=== PATIENT | female | born 1985 | race Two or more races ===

== ENCOUNTER 2017-03-04 16:03 | Emergency (ER) | payer OTHER ==
[2017-03-04 16:30] VITALS: TEMP 98.3; BMI 23.6
--- NOTE | 2017-03-04 18:55 | PDOC ---
History of Present Illness - General Chief Complaint: Vaginal Bleeding Stated Complaint: VAGINAL BLEEDING (4 WEEKS) History Source: Patient, Spouse Exam Limitations: No Limitations - History of Present Illness Initial Comments: 03/04/17 18:55 [id number] with pmh of preeclampsia presents 4 week (last period January 16) and spotting in the urine around 8am and 10am and lower abdominal pain for the past few days. Pain is worse when standing up and walking. Morning nausea and vomiting since started. Slight dysuria. No other complaints. 03/04/17 19:07 Past History - Past Medical History Allergies/Adverse Reactions: Allergies Allergy/AdvReac Type Severity Reaction Status Date / Time No Known Allergies Allergy Verified 03/04/17 16:25 Home Medications: Ambulatory Orders NK [No Known Home Medication] 03/04/17 Other medical history: denies - Immunization History Immunization Up to Date: Yes - Psycho/Social/Smoking Cessation Hx Suicidal Ideation: No Smoking History: Never smoked Information on smoking cessation initiated: No Hx Alcohol Use: No Drug/Substance Use Hx: No Review of Systems - Review of Systems Constitutional: No: Symptoms Reported HEENTM: No: Symptoms Reported Respiratory: No: Symptoms reported Cardiac (ROS): No: Symptoms Reported ABD/GI: No: Symptoms Reported : Yes: Dysuria, Discharge, Hematuria Musculoskeletal: No: Symptoms Reported Integumentary: No: Symptoms Reported Neurological: No: Symptoms reported *Physical Exam - Vital Signs Last Vital Signs Temp Pulse Resp BP Pulse Ox 98.3 F 82 18 115/58 100 03/04/17 16:05 03/04/17 16:05 03/04/17 16:05 03/04/17 16:05 03/04/17 16:05 - Physical Exam General Appearance: Yes: Nourished, Appropriately Dressed. No: Apparent Distress HEENT: positive: EOMI, YOUSIF Neck: negative: Tender Respiratory/Chest: positive: Lungs Clear, Normal Breath Sounds. negative: Chest Tender Cardiovascular: positive: Regular Rhythm, Regular Rate, S1, S2 Vascular Pulses: Dorsalis-Pedis (R): 2+, Doralis-Pedis (L): 2+ Female Pelvic Exam: positive: cervical os closed (difficult to assess - ambiguous), vaginal bleeding (possible products of conception in cul-de-sac) Gastrointestinal/Abdominal: positive: Normal Bowel Sounds, Tender, Flat, Soft Musculoskeletal: negative: CVA Tenderness Medical Decision Making - Medical Decision Making 03/04/17 19:19 31 4weeks with spotting and abdominal pain. Sent labs and lytes, Urine preg positive Transvaginal u/s pending
[2017-03-04 18:57] LABS: URINE APPEARANCE SLCLOUDY; URINE BILIRUBIN NEGATIVE (NEGATIVE); URINE BLOOD 3+ (NEGATIVE); URINE COLOR YELLOW; URINE GLUCOSE (UA) NEGATIVE (NEGATIVE); URINE KETONE NEGATIVE (NEGATIVE); URINE LEUK ESTERASE NEGATIVE (NEGATIVE); URINE NITRITE NEGATIVE (NEGATIVE); URINE PROTEIN NEGATIVE (NEGATIVE)
[2017-03-04 19:00] LABS: URINE MUCUS FEW; URINE RBC 105 /hpf (0-3); URINE WBC 2 /hpf (3-5)
[2017-03-04 19:28] LABS: BASOPHIL 1.1 % (0-2.0); EOSINOPHIL 2.2 % (0-4.5); MCH 30.6 pg (25.7-33.7); MCHC 32.8 g/dl (32.0-36.0); MEAN CELL VOLUME 93.5 fl (80-96); MEAN PLT VOLUME 7.3 fl (7.5-11.1); NEUTROPHILS 59.8 % (42.8-82.8); PLATELET COUNT 238 K/MM3 (134-434); RDW 13.9 % (11.6-15.6)
[2017-03-04 20:12] LABS: ALBUMIN 3.7 g/dl (3.4-5.0); ANION GAP 7 (8-16); CO2 28 mmol/L (21-32); CREATININE 0.5 mg/dL (0.55-1.02); GLUCOSE,RANDOM 78 mg/dL (74-106); SGOT/AST 15 U/L (15-37); SGPT/ALT 27 U/L (12-78)
[2017-03-04 20:28] LABS: ALK PHOS 44 U/L (45-117); BILIRUBIN,TOTAL 0.2 mg/dL (0.2-1.0); TOT PROT 7.1 g/dl (6.4-8.2)
--- NOTE | 2017-03-04 21:51 | PDOC ---
Attending Attestation - Resident Resident Name: Samson Weiss - ED Attending Attestation I have performed the following: I have examined & evaluated the patient, The case was reviewed & discussed with the resident, I agree w/resident's findings & plan, Exceptions are as noted - HPI HPI: 03/04/17 21:51 47 yo F currently about 4 weeks here with c/o suprapubic crampy abd pain and spotting. less than period. began today. no dizziness no other complaints. h/o preeclempsia. - Physicial Exam PE: 03/04/17 21:51 awake alert lungs clear heart rrr no mrg. abd soft mild suprapubic ttp. no rebound no guarding. ext wwp skin warm and dry. nuero alert oriented x 3. - Medical Decision Making 03/04/17 21:51 plan r/o ectopic vs threatened vs. incomplete or missed AB. plan labs blood type tvus. <Velma Doe - Last Filed: 03/04/17 21:50> - Medical Decision Making 03/04/17 21:52 EXAM#: TYPE/EXAM: RESULT: [id number] US/TRANSVAGINAL US PREG . Vaginal bleeding. Obstetrical ultrasound, transvesical and transvaginal Compared to prior examination dated 01/23/2015. LMP 01/18/2017. The uterus is gravid measuring 9.2 x 4.7 cm. An intrauterine gestational sac, yolk sac and pole identified. Mean sac diameter is 1.66 cm consistent with 6 weeks 3 days of gestation. Yolk sac measures 2 mm. pole measures 6 mm consistent with 6 weeks 3 days of gestation. heart rate is 1 23 bpm. The right ovary measures 3.2 x 2.2 cm and the left ovary measures 2.8 x 1.1 cm. Both ovaries appear unremarkable with normal vascular flow in the right ovary. Vascular flow in the left ovary was not evaluated on this exam. There is no free fluid in the cul-de-sac. Impression Single early live intrauterine with estimated gestational age of 6 weeks 3 days. Both ovaries appear unremarkable. Normal vascular flow in the right ovary. Vascular flow in the left ovary was not evaluated. Reported By: Tori Sykes MD 03/04/172129 <Jennifer Milton - Last Filed: 03/04/17 21:52>
[2017-03-04 23:03] VITALS: BP 119/68; PULSE 81
== END 2017-03-04 23:03 | disposition home or self-care (01) ==
LOC: JER 16:03
DX: O26.891 Other specified pregnancy related conditions, first trimester (principal); N93.9 Abnormal uterine and vaginal bleeding, unspecified; Z3A.01 Less than 8 weeks gestation of pregnancy
CPT/HCPCS: 36415; 76817-TC; 80053; 81003; 81015; 84702; 84703; 85025; 86850; 86900; 86901; 99283-25

== ENCOUNTER 2017-10-19 10:20 | Inpatient (IN) | payer OTHER ==
--- NOTE | 2017-10-19 11:18 | HP ---
Past Medical History - Primary Care Physician PCP:: Eren Peña - Admission Chief Complaint: 38.4 weeks, prom, GDM History of Present Illness: 32 yo f edc by don 10/25/17 with prom since 730 am today, water run down her legs twice , no pain, has pinkish discharge , cx 2 cm 80 vx -2 , nitrazine equivical, History Source: Patient Limitations to Obtaining History: No Limitations - Past Medical History ...: 4 ...Para: 2 ...Term: 2 ...: 1 ... Weeks Gestation by Dates: 38.4 - Past Surgical History Hx Myomectomy: No Hx Transabdominal Cerclage: No - Smoking History Smoking history: Never smoked - Alcohol/Substance Use Hx Alcohol Use: No Home Medications - Allergies Allergies/Adverse Reactions: Allergies Allergy/AdvReac Type Severity Reaction Status Date / Time No Known Allergies Allergy Verified 10/19/17 11:56 - Home Medications Home Medications: Ambulatory Orders 19 Tablet 1 tab PO DAILY 10/14/17 Ferrous Sulfate [Feosol] 325 mg PO TID 10/19/17 Problem List - Problems (1) with 38 completed weeks gestation Code(s): Z3A.38 - 38 WEEKS GESTATION OF (2) Premature rupture of membranes Code(s): O42.90 - SHERWIN ROM, 7TH0 BETW RUPT & ONST LABR, UNSP WEEKS OF GEST Qualifiers: PROM onset of labor timing: onset of labor within 24 hours of rupture PROM gestational age: -third trimester Qualified Code(s): O42.013 - premature rupture of membranes, onset of labor within 24 hours of rupture, third trimester Assessment/Plan admit, GBS negative observation, if no contraction will induce rba discussed
[2017-10-19] MEDS ORDERED: BUTORPHANOL TARTRATE 1 MG/ML VIAL IVPUSH ONE (11:23)
[2017-10-19] MEDS ORDERED: PROMETHAZINE HCL 25 MG/1 ML VIAL IVPUSH ONE (11:23)
[2017-10-19] MEDS ORDERED: LACTATED RINGERS SOLUTION 1,000 ML/1,000 ML INFUS.BAG IV SCH (11:30)
[2017-10-19] MEDS ORDERED: ELECTROLYTE-148 SOLN 1,000 ML IV SCH (11:30)
[2017-10-19 11:55] LABS: BASO % 0.7 % (0-2.0); EOS % 1.1 % (0-4.5); HEMATOCRIT 30.7 % (32.4-45.2); HEMOGLOBIN 9.8 GM/dL (10.7-15.3); LYMPH % 17.6 % (8-40); MCHC 32.1 g/dl (32.0-36.0); MEAN CELL VOLUME 84.1 fl (80-96); MEAN PLT VOLUME 7.3 fl (7.5-11.1); MONO % 5.6 % (3.8-10.2); PLATELET COUNT 327 K/MM3 (134-434); RBC 3.65 M/mm3 (3.60-5.2); RDW 19.5 % (11.6-15.6); WHITE BLOOD COUNT 10.1 K/mm3 (4.0-10.0)
[2017-10-19 12:18] LABS: ANION GAP 10 (8-16); BLOOD UREA NITROGEN 14 mg/dL (7-18); CALCIUM 8.8 mg/dL (8.5-10.1); CHLORIDE 108 mmol/L (98-107); CO2 23 mmol/L (21-32); CREATININE 0.6 mg/dL (0.55-1.02); GLUCOSE,RANDOM 64 mg/dL (74-106); POTASSIUM 4.3 mmol/L (3.5-5.1); SODIUM 141 mmol/L (136-145)
[2017-10-19 12:42] VITALS: BMI 26.6
[2017-10-19 12:45] LABS: INR 0.88 (0.82-1.09)
[2017-10-19 12:48] LABS: ACTIVATED PTT 26.1 SECONDS (26.9-34.4)
--- NOTE | 2017-10-19 13:15 | PN ---
Progress Note (short form) - Note Progress Note: cx 2 cm 75, vx -2 mr, cervidil inserted Problem List - Problems (1) with 38 completed weeks gestation Code(s): Z3A.38 - 38 WEEKS GESTATION OF (2) Premature rupture of membranes Code(s): O42.90 - SHERWIN ROM, 7TH0 BETW RUPT & ONST LABR, UNSP WEEKS OF GEST Qualifiers: PROM onset of labor timing: onset of labor within 24 hours of rupture PROM gestational age: -third trimester Qualified Code(s): O42.013 - premature rupture of membranes, onset of labor within 24 hours of rupture, third trimester
[2017-10-19] MEDS ORDERED: DINOPROSTONE 10 MG VAGINAL SUPPOSITORY VG ONE (15:38)
[2017-10-19] MEDS ORDERED: BUTORPHANOL TARTRATE 1 MG/ML VIAL ONE ×2 (16:08)
[2017-10-19] MEDS ORDERED: PROMETHAZINE HCL 25 MG/1 ML VIAL ONE (16:08)
[2017-10-19] MEDS ORDERED: OXYTOCIN 20 UNITS in 0.9% NS 20 UNIT/1,000 ML INFUS.BAG IV ONE ×2 (16:22→16:48)
[2017-10-19] MEDS ORDERED: LIDOCAINE HCL 1% PRESERVATIVE FREE - 30ML VIAL ONE (16:48)
[2017-10-19] MEDS ORDERED: DEXTROSE 5%-LACTATED RINGERS 1,000 ML IV SCH (18:00)
[2017-10-19] MEDS ORDERED: BENZOCAINE 20% 57 GM BOTTLE TP PRN (19:57)
[2017-10-19] MEDS ORDERED: BISACODYL 10 MG SUPP.RECT RC PRN (19:57)
[2017-10-19] MEDS ORDERED: METHYLERGONOVINE MALEATE 0.2 MG/1 ML AMP IM PRN (19:57)
[2017-10-19] MEDS ORDERED: BENZOCAINE 28 GM HEMORRHOIDAL OINTMENT TP PRN (19:57)
[2017-10-19] MEDS ORDERED: WITCH HAZEL 50% (TUCKS) 40 PAD/JAR PAD TP PRN (19:57)
--- NOTE | 2017-10-19 19:57 | PN ---
Progress Note (short form) - Note Progress Note: cx full , 100 0 wants to push, fhr cat1 Problem List - Problems (1) with 38 completed weeks gestation Code(s): Z3A.38 - 38 WEEKS GESTATION OF (2) Premature rupture of membranes Code(s): O42.90 - SHERWIN ROM, 7TH0 BETW RUPT & ONST LABR, UNSP WEEKS OF GEST Qualifiers: PROM onset of labor timing: onset of labor within 24 hours of rupture PROM gestational age: -third trimester Qualified Code(s): O42.013 - premature rupture of membranes, onset of labor within 24 hours of rupture, third trimester
[2017-10-19] MEDS ORDERED: D5W-LR W/ 20 UNITS OXYTOCIN 1,000 ML IV SCH (20:00)
[2017-10-19] MEDS ORDERED: OXYTOCIN 20 UNITS in 0.9% NS 20 UNIT/1,000 ML INFUS.BAG IV SCH (20:15)
[2017-10-19] MEDS ORDERED: IBUPROFEN 600 MG TABLET (FP) PO ONE (21:00)
[2017-10-19] MEDS ORDERED: ACETAMINOPHEN 325 MG TABLET (FP) ONE (21:00)
[2017-10-19] MEDS: ACETAMINOPHEN 325 MG TABLET (FP) PO PRN (21:03)
[2017-10-19] MEDS: IBUPROFEN 600 MG TABLET (FP) PO PRN (21:04)
[2017-10-19] MEDS: FERROUS SO4 325 MG TABLET (FP) PO SCH (22:05)
[2017-10-20] MEDS: IBUPROFEN 600 MG TABLET (FP) PO PRN (06:43)
[2017-10-20] MEDS: ACETAMINOPHEN 325 MG TABLET (FP) PO PRN (06:43)
--- NOTE | 2017-10-20 08:01 | PN ---
Post Progress Note - Subjective Subjective: no complains Post Day: 1 Type of Delivery: Vital Signs: Vital Signs Temperature 98.6 F 10/20/17 05:15 Pulse Rate 69 10/20/17 05:15 Respiratory Rate 20 10/20/17 05:15 Blood Pressure 126/60 10/20/17 05:15 O2 Sat by Pulse Oximetry (%) Breast Exam: Yes: Soft, Other (wants to BF ). No: Engorged Uterus: Yes: Fundus Firm, Fundus below umbilicus, Non-tender Lochia: Yes: Rubra Lochia, amount: Moderate Extremities: Yes: Calves non-tender Perineum: Yes: Intact - Labs Labs: CBC WBC 10.1 K/mm3 (4.0-10.0) H 10/19/17 11:35 RBC 3.65 M/mm3 (3.60-5.2) 10/19/17 11:35 Hgb 9.8 GM/dL (10.7-15.3) L D 10/19/17 11:35 Hct 30.7 % (32.4-45.2) L D 10/19/17 11:35 MCV 84.1 fl (80-96) 10/19/17 11:35 MCH 27.0 pg (25.7-33.7) D 10/19/17 11:35 MCHC 32.1 g/dl (32.0-36.0) 10/19/17 11:35 RDW 19.5 % (11.6-15.6) H D 10/19/17 11:35 Plt Count 327 K/MM3 (134-434) D 10/19/17 11:35 MPV 7.3 fl (7.5-11.1) L 10/19/17 11:35 Neutrophils % 75.0 % (42.8-82.8) D 10/19/17 11:35 Lymphocytes % 17.6 % (8-40) D 10/19/17 11:35 Monocytes % 5.6 % (3.8-10.2) 10/19/17 11:35 Eosinophils % 1.1 % (0-4.5) 10/19/17 11:35 Basophils % 0.7 % (0-2.0) 10/19/17 11:35 Problem List - Problems (1) Vaginal delivery Code(s): O80 - ENCOUNTER FOR FULL-TERM UNCOMPLICATED DELIVERY Assessment/Plan stable , anemia pp cbc pending will discharge tomorrow
[2017-10-20] MEDS: FERROUS SO4 325 MG TABLET (FP) PO SCH ×2 (08:40→17:27)
[2017-10-20] MEDS: PRENATAL VITAMINS W/ FOLIC ACID TABLET (FP) PO SCH (09:44)
[2017-10-20 09:54] LABS: BASO % 0.8 % (0-2.0); EOS % 0.5 % (0-4.5); HEMATOCRIT 29.3 % (32.4-45.2); HEMOGLOBIN 9.3 GM/dL (10.7-15.3); LYMPH % 15.7 % (8-40); MCH 27.1 pg (25.7-33.7); MCHC 31.8 g/dl (32.0-36.0); MEAN CELL VOLUME 85.4 fl (80-96); MEAN PLT VOLUME 7.2 fl (7.5-11.1); MONO % 4.5 % (3.8-10.2); NEUT % 78.5 % (42.8-82.8); PLATELET COUNT 295 K/MM3 (134-434); RBC 3.43 M/mm3 (3.60-5.2); RDW 20.3 % (11.6-15.6); WHITE BLOOD COUNT 14.3 K/mm3 (4.0-10.0)
[2017-10-20] MEDS ORDERED: SENNOSIDES/DOCUSATE COMBO (SENNA PLUS) TABLET (UD) PO PRN (22:00)
[2017-10-21] MEDS: FERROUS SO4 325 MG TABLET (FP) PO SCH (08:28)
[2017-10-21 09:42] VITALS: BP 123/79; PULSE 75; TEMP 98
[2017-10-21] MEDS: PRENATAL VITAMINS W/ FOLIC ACID TABLET (FP) PO SCH (10:06)
--- NOTE | 2017-10-21 14:08 | DS ---
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 Signs: Vital Signs Temperature 98.0 F 10/21/17 09:39 Pulse Rate 75 10/21/17 09:39 Respiratory Rate 18 10/21/17 09:39 Blood Pressure 123/79 10/21/17 09:39 O2 Sat by Pulse Oximetry (%) Constitutional: Yes: Well Nourished, No Distress, Calm Eyes: Yes: WNL, Conjunctiva Clear, EOM Intact HENT: Yes: WNL, Atraumatic, Normocephalic Neck: Yes: WNL, Supple, Trachea Midline Cardiovascular: Yes: WNL, Regular Rate and Rhythm Respiratory: Yes: WNL, Regular, CTA Bilaterally Gastrointestinal: Yes: WNL ...Rectal Exam: Yes: WNL Renal/: Yes: WNL ....Post : Yes: Uterus firm, Uterus non-tender, Slight lochia rubra Breast(s): Yes: WNL Musculoskeletal: Yes: WNL Extremities: Yes: WNL Integumentary: Yes: WNL Neurological: Yes: WNL, Alert, Oriented ...Motor Strength: WNL Psychiatric: Yes: WNL, Alert, Oriented Labs: CBC, BMP 10/20/17 09:40 10/19/17 11:35 Delivery - Delivery Vaginal Delivery: Spontaneous (no complication) Type of Anesthesia: None Episiotomy/Laceration: None EBL (cc): 300 Delivery, Single - Stages of Labor Date 1st Stage Initiatied: 10/19/17 Time 1st Stage Initiated: 15:00 Date 2nd Stage Initiated: 10/19/17 Time 2nd Stage Initiated: 19:50 Date of Delivery: 10/19/17 Time of Delivery: 20:06 Time Placenta Delivered: 20:10 Placenta: Yes: Spontaneous - 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 Gender: Female Weight: 6 lb 6 oz Position: Left, OA Total Hours ROM (Hrs/Mins): 12H 36M - 1 Minute Total Score: 9 5 Minutes Total Score: 9 - Feeding Plan Initial Plan: Elected not to breastfeed exclusively throughout hospitalization Discharge Summary Reason For Visit: LABOR ADMISSION Current Active Problems with 38 completed weeks gestation (Acute) Premature rupture of membranes (Acute) Vaginal delivery (Acute) Procedures: Principal: Condition: Good - Instructions Diet, Activity, Other Instructions: Regular diet No douching, no sexual intercourse x 6 weeks F/U in clinic in 6 weeks Referrals: Eren Peña MD [Staff Physician] - Disposition: HOME - Home Medications Comprehensive Discharge Medication List: Ambulatory Orders 19 Tablet 1 tab PO DAILY 10/14/17 Ferrous Sulfate [Feosol] 325 mg PO TID 10/19/17
== END 2017-10-21 12:42 | disposition home or self-care (01) | DRG 560 ==
LOC: JLDR 10:20 → J3W 21:45
PROVIDERS: ADMIT Obstetrics & Gynecology; ATTEND Obstetrics & Gynecology
PROC: 10E0XZZ Delivery of Products of Conception, External Approach (ICD-10-PCS; principal; 2017-10-19)
PROC: 3E0P7VZ Introduction of Hormone into Female Reproductive, Via Natural or Artificial Opening (ICD-10-PCS; 2017-10-19)
DX: O42.02 Full-term premature rupture of membranes, onset of labor within 24 hours of rupture (principal); Z3A.38 38 weeks gestation of pregnancy; Z37.0 Single live birth
CPT/HCPCS: 36415; 59409; 71046-TC-FY; 80048; 82962; 85025; 85610; 85730; 86593; 86850; 86900; 86901

== ENCOUNTER 2018-12-19 16:49 | Emergency (ER) | payer OTHER | END 2018-12-19 20:08 | disposition home or self-care (01) | LOC: JER 16:49 ==

== ENCOUNTER 2020-03-11 10:10 | Emergency (ER) | payer OTHER ==
[2020-03-11 10:27] VITALS: BP 106/58; PULSE 87; TEMP 98.1; BMI 27.1
--- NOTE | 2020-03-11 10:40 | PDOC ---
History of Present Illness - General Chief Complaint: Cold Symptoms Stated Complaint: 27 WK PREG / COUGH / SOB Time Seen by Provider: 03/11/20 10:28 History Source: Patient Exam Limitations: Clinical Condition - History of Present Illness Initial Comments: 03/11/20 10:49 Patient 27 weeks confirm with no significant past medical history present with complaint of 5-day history of dry cough which is worse at night when she sleeping with intermittent shortness of breath when she is sleeping. Denies fever, chills, chest pain, palpitations, nausea, vomiting, abdominal pain. Denies recent travel or sick contact. Denies any known COVID positive contact. Patient has not taken anything for symptoms. Denies vaginal bleeding. Denies any other symptoms Is this a multiple visit Asthma Patient?: No Timing/Duration: other (5 days) Past History - Medical History Allergies/Adverse Reactions: Allergies Allergy/AdvReac Type Severity Reaction Status Date / Time No Known Allergies Allergy Verified 03/11/20 10:24 Home Medications: Ambulatory Orders 19 Tablet 1 tab PO DAILY 10/14/17 Ferrous Sulfate [Feosol] 325 mg PO TID 10/19/17 Albuterol Sulfate Inhaler - [Ventolin HFA Inhaler -] 2 inh PO Q6H PRN #1 inh 03/11/20 Azithromycin [Zithromax 250mg Tablets -] 250 mg PO UTDICT #6 tab 03/11/20 Benzonatate [Tessalon Pearls -] 100 mg PO Q8H PRN #8 capsule 03/11/20 Asthma: No Cancer: No Cardiac Disorders: No COPD: No Diabetes: No HTN: No Seizures: No Thyroid Disease: No - Reproductive History Is Patient Now?: Yes (#): 4 Para: 2 - Immunization History Immunization Up to Date: No - Psycho-Social/Smoking History Smoking History: Never smoked Have you smoked in the past 12 months: No - Substance Abuse Hx (Audit-C & DAST Scrn) How often the patient has a drink containing alcohol: Never Score: In Men: 4 or > Positive; In Women: 3 or > Positive: 0 Screen Result (Pos requires Nsg. Audit-10AR): Negative In the last yr the pt used illegal drug/Rx for NonMed reason: No Score: Yes response is considered Positive: 0 Screen Result (Positive result requires Nsg. DAST-10): Negative Review of Systems - Review of Systems Able to Perform ROS?: Yes Is the patient limited Kinyarwanda proficient: No Constitutional: No: Chills, Fever, Malaise HEENTM: No: Symptoms Reported, See HPI, Eye Pain, Blurred Vision, Tearing, Recent change in vision, Double Vision, Cataracts, Ear Pain, Ocular Prothesis, Ear Discharge, Nose Pain, Nose Congestion, Tinnitus, Nose Bleeding, Hearing Loss, Throat Pain, Throat Swelling, Mouth Pain, Dental Problems, Difficulty Swallowing, Mouth Swelling, Other Respiratory: Yes: Symptoms reported, See HPI, Cough, Shortness of Breath (intermittent). No: Orthopnea, SOB with Exertion, SOB at Rest, Stridor, Wheezing, Productive cough, Hemoptysis, Other Cardiac (ROS): No: Symptoms Reported, See HPI, Chest Pain, Edema, Irregular Heart Rate, Lightheadedness, Palpitations, Syncope, Chest Tightness, Other ABD/GI: No: Symptoms Reported, See HPI, Abdominal Distended, Abd. Pain w/ defecation, Blood Streaked Bowels, Constipated, Diarrhea, Difficulty Swallowing, Nausea, Poor Appetite, Poor Fluid Intake, Rectal Bleeding, Vomiting, Indigestion, Abdominal cramping, Tarry Stools, Other Integumentary: No: Symptoms Reported Neurological: No: Symptoms reported, Headache, Weakness, Dizziness All Other Systems: Reviewed and Negative *Physical Exam - Vital Signs Last Vital Signs Temp Pulse Resp BP Pulse Ox 98.1 F 87 18 106/58 L 100 03/11/20 10:24 03/11/20 10:24 03/11/20 10:24 03/11/20 10:24 03/11/20 10:24 - Physical Exam 03/11/20 10:53 GENERAL: Well developed, well nourished. Awake and alert. No acute distress. HEENT: Normocephalic, atraumatic. PERRLA, EOMI. No conjunctival pallor. Sclera are non-icteric. Moist mucous membranes. Oropharynx is clear. NECK: Supple. Full ROM. CARDIOVASCULAR: Regular rate and rhythm. No murmurs, rubs, or gallops. Distal pulses are 2+ and symmetric. PULMONARY: No evidence of respiratory distress. Lungs clear to auscultation bilaterally. No wheezing, rales or rhonchi. ABDOMINAL: Soft. 25 weeks gravid abdomen. Non-distended. No rebound or guarding. No organomegaly. Normoactive bowel sounds. MUSCULOSKELETAL Normal range of motion at all joints. SKIN: Warm and dry. Normal capillary refill. No rashes. No jaundice. No cyanosis NEUROLOGICAL: Alert, awake, appropriate. Gait is normal without ataxia. PSYCHIATRIC: Cooperative. Good eye contact. Appropriate mood General Appearance: Yes: Nourished, Appropriately Dressed. No: Apparent Distress Medical Decision Making - Medical Decision Making 03/11/20 10:52 Patient 27 weeks confirm with no significant past medical history present with complaint of 5-day history of dry cough which is worse at night when she sleeping with intermittent shortness of breath when she is sleeping. Denies fever, chills, chest pain, palpitations, nausea, vomiting, abdominal pain. Denies recent travel or sick contact. Denies any known COVID positive contact. Patient has not taken anything for symptoms. Denies vaginal bleeding. Denies any other symptoms Clinical exam unremarkable with normal lung and cardio exam. Patient in no acu te distress. Patient afebrile. Lungs clear to auscultation bilateral. Patient symptoms likely viral URI. Cover test ordered to rule out COVID. Patient stable for discharge on limited 2-day course of Tessalon Perles for cough and albuterol inhaler as needed for cough. Patient prescribed Z-Chun antibiotics and advised not to fill medication unless still symptomatic after 3 days of worsening symptoms. Patient advised to increase fluid intake and follow-up with PCP Discharge - Discharge Information Problems reviewed: Yes Clinical Impression/Diagnosis: URI with cough and congestion Condition: Stable Disposition: HOME - Admission No - Additional Discharge Information Prescriptions: Benzonatate [Tessalon Pearls -] 100 mg PO Q8H PRN #8 capsule PRN Reason: Cough Albuterol Sulfate Inhaler - [Ventolin HFA Inhaler -] 2 inh PO Q6H PRN #1 inh PRN Reason: Cough Azithromycin [Zithromax 250mg Tablets -] 250 mg PO UTDICT #6 tab - Follow up/Referral - Patient Discharge Instructions Patient Printed Discharge Instructions: DI for Viral Upper Respiratory Infection -- Adult, [facility]-Coronavirus Instructions, [facility] [address] COVID-19 Isolation Protocol Additional Instructions: Prescribed medication for cough as needed for cough. Increase fluid intake. Take prescribed azithromycin antibiotics only if no improvement after 3 days. Follow-up with your primary care Print Language: LITHUANIAN - Post Discharge Activity
== END 2020-03-11 10:51 | disposition home or self-care (01) ==
LOC: JER 10:10
DX: R05 Cough (principal); J06.9 Acute upper respiratory infection, unspecified; Z3A.27 27 weeks gestation of pregnancy
CPT/HCPCS: 99283-25; U0003

== ENCOUNTER 2020-06-03 10:38 | Inpatient (IN) | payer OTHER ==
[2020-06-03 12:59] VITALS: BMI 30.7
[2020-06-03 13:00] LABS: INR 0.84 (0.83-1.09); PROTHROMBIN TIME (PATIENT) 10.4 SEC (9.7-13.0)
[2020-06-03 13:02] LABS: ACTIVATED PTT 25.6 SECONDS (25.2-36.5)
[2020-06-03 13:03] LABS: BASO % 0.4 % (0-2.0); EOS % 1.2 % (0-4.5); HEMATOCRIT 31.4 % (32.4-45.2); HEMOGLOBIN 10.1 GM/dL (10.7-15.3); LYMPH % 26.4 % (8-40); MCHC 32.2 g/dl (32.0-36.0); MEAN CELL VOLUME 80.9 fl (80-96); MEAN PLT VOLUME 7.7 fl (7.5-11.1); MONO % 6.2 % (3.8-10.2); NEUT % 65.8 % (42.8-82.8); PLATELET COUNT 348 K/MM3 (134-434); RBC 3.88 M/mm3 (3.60-5.2); WHITE BLOOD COUNT 8.7 K/mm3 (4.0-10.0)
[2020-06-03 13:09] LABS: POTASSIUM 4.2 mmol/L (3.5-5.1)
[2020-06-03 13:10] LABS: BLOOD UREA NITROGEN 14.1 mg/dL (7-18); CALCIUM 8.5 mg/dL (8.5-10.1)
[2020-06-03 13:14] LABS: CREATININE 0.6 mg/dL (0.55-1.3)
[2020-06-03] MEDS ORDERED: OXYTOCIN 30 UNITS in 0.9% NS 30 UNIT/500 ML INFUS.BAG IVPB SCH (14:30)
[2020-06-03] MEDS ORDERED: ELECTROLYTE-148 SOLN 1,000 ML IV SCH (14:30)
[2020-06-03] MEDS ORDERED: OXYTOCIN 30 UNITS in 0.9% NS 30 UNIT/500 ML INFUS.BAG IVPB ONE (14:33)
[2020-06-03] MEDS ORDERED: FENTANYL/BUPIVACAINE/NS/PF - PCEA - 50 ML DISP.SYRIN EP ONE (16:12)
[2020-06-03] MEDS ORDERED: PCA PUMP NR ONE ×2 (16:12→21:01)
[2020-06-03] MEDS ORDERED: LIDO 2%/EPI 1:200000 PRESRVFRE (20 ML SDVIAL) ONE (16:14)
[2020-06-03] MEDS ORDERED: NALOXONE HCL 0.4 MG/ML VIAL IVPUSH PRN (16:34)
[2020-06-03] MEDS ORDERED: FENTANYL/BUPIVACAINE/NS/PF - PCEA - 50 ML DISP.SYRIN EP SCH (16:45)
[2020-06-03] MEDS ORDERED: OXYTOCIN 20 UNITS in 0.9% NS 20 UNIT/1,000 ML INFUS.BAG IV ONE ×2 (18:33→21:21)
[2020-06-03] MEDS ORDERED: WITCH HAZEL 50% (TUCKS) 40 PAD/JAR PAD TP PRN (19:30)
[2020-06-03] MEDS ORDERED: BENZOCAINE 28 GM HEMORRHOIDAL OINTMENT TP PRN (19:30)
[2020-06-03] MEDS ORDERED: METHYLERGONOVINE MALEATE 0.2 MG/1 ML AMP IM PRN (19:30)
[2020-06-03] MEDS ORDERED: BENZOCAINE 20% 57 GM BOTTLE TP PRN (19:30)
[2020-06-03] MEDS ORDERED: OXYTOCIN 20 UNITS in 0.9% NS 20 UNIT/1,000 ML INFUS.BAG IV SCH (19:30)
[2020-06-03] MEDS ORDERED: BISACODYL 10 MG SUPP.RECT RC PRN (19:30)
[2020-06-03] MEDS: ACETAMINOPHEN 325 MG TABLET (FP) PO PRN (21:53)
[2020-06-03] MEDS: IBUPROFEN 600 MG TABLET (FP) PO PRN (21:53)
[2020-06-04 08:09] LABS: BASO % 0.4 % (0-2.0); HEMATOCRIT 28.6 % (32.4-45.2); HEMOGLOBIN 9.1 GM/dL (10.7-15.3); LYMPH % 21.6 % (8-40); MCH 26.2 pg (25.7-33.7); MCHC 31.8 g/dl (32.0-36.0); MEAN CELL VOLUME 82.6 fl (80-96); MEAN PLT VOLUME 7.5 fl (7.5-11.1); MONO % 5.4 % (3.8-10.2); NEUT % 71.6 % (42.8-82.8); PLATELET COUNT 304 K/MM3 (134-434); RBC 3.47 M/mm3 (3.60-5.2); RDW 15.7 % (11.6-15.6); WHITE BLOOD COUNT 12.4 K/mm3 (4.0-10.0)
[2020-06-04] MEDS: ACETAMINOPHEN 325 MG TABLET (FP) PO PRN (08:56)
[2020-06-04] MEDS: IBUPROFEN 600 MG TABLET (FP) PO PRN (08:56)
[2020-06-04] MEDS: PRENATAL VITAMINS W/ FOLIC ACID TABLET (FP) PO SCH (09:04)
[2020-06-04] MEDS ORDERED: SENNOSIDES/DOCUSATE COMBO (SENNA PLUS) TABLET (UD) PO PRN (22:00)
[2020-06-05 08:53] VITALS: BP 122/75; PULSE 74; TEMP 98.1
[2020-06-05] MEDS: PRENATAL VITAMINS W/ FOLIC ACID TABLET (FP) PO SCH (09:53)
== END 2020-06-05 12:00 | disposition home or self-care (01) | DRG 560 ==
LOC: JDEL 10:38 → JLDR 11:00 → J3W 21:24
PROVIDERS: ADMIT Obstetrics & Gynecology; ATTEND Obstetrics & Gynecology
PROC: 10E0XZZ Delivery of Products of Conception, External Approach (ICD-10-PCS; principal; 2020-06-03)
PROC: 3E033VJ Introduction of Other Hormone into Peripheral Vein, Percutaneous Approach (ICD-10-PCS; 2020-06-03)
PROC: 10907ZC Drainage of Amniotic Fluid, Therapeutic from Products of Conception, Via Natural or Artificial Opening (ICD-10-PCS; 2020-06-03)
PROC: 0UQMXZZ Repair Vulva, External Approach (ICD-10-PCS; 2020-06-03)
DX: O41.03X0 Oligohydramnios, third trimester, not applicable or unspecified (principal); O71.82 Other specified trauma to perineum and vulva; Z3A.38 38 weeks gestation of pregnancy; Z37.0 Single live birth
CPT/HCPCS: 36415; 59409; 71045-TC-FY; 80048; 85025; 85610; 85730; 86780; 86850; 86870; 86900; 86901; 86902; C9803; U0003